=== PATIENT | male | born 1965 | race Two or more races ===

== ENCOUNTER 2019-11-23 06:57 | Day surgery (SDC) | payer BC ==
[2019-11-23] VITALS (9 sets, daily range): BP systolic 111–142; BP diastolic 68–87
[~2019-11-23] VITALS: Ht 175.3 cm; Wt 85.7 kg
[~2019-11-23 06:57] MED LIST: ANDROGEL75 G2 TD; AZILECT1 MG PO; CELEBREX200 MG ORAL; FAMOTIDINE20 MG ORAL; FLOMAX0.4 MG ORAL; SINEMET CR 25/101 EA ORAL; TADALAFIL5 M1 PO
[2019-11-23] MEDS ORDERED: Midazolam 2mg/2ml Inj ONE (07:31)
[2019-11-23] MEDS ORDERED: fentaNYL 100 mcg/2 mL IV ONE (07:31)
[2019-11-23] MEDS ORDERED: ALLEGRA-D 24 H1 EACH PO (07:43)
[2019-11-23] MEDS ORDERED: LR 1000ml 1,000 ML IVLG SCH (07:50)
--- NOTE | 2019-11-23 07:50 | Anethesia Preoperative Eval ---
Anesthesia Pre-op PMH/ROS General Date of Evaluation: Nov 23, 2019 Time of Evaluation: 07:47 Anesthesiologist: Amanda ASA Score: ASA 2 Mallampati Score Class I : Soft palate, uvula, fauces, pillars visible Class II: Soft palate, uvula, fauces visible Class III: Soft palate, base of uvula visible Class IV: Only hard plate visible Mallampati Classification: Class II Surgeon: Wanda Diagnosis: Colon polips Surgical Procedure: Colonoscopy Anesthesia History: none Family History: no anesthesia problems Allergies: Coded Allergies: No Known Allergies (Unverified , 11/22/19) Medications: see eMAR Patient NPO?: Yes Past Medical History Cardiovascular: Reports: HTN - borderline; Denies: CAD, [place], valve dz, arrhythmia, other Pulmonary: Denies: asthma, COPD, ISELA, other Gastrointestinal/Genitourinary: Reports: GERD, other - Prostate CA s/p radiation treatment; Denies: CRI, ESRD Neurologic/Psychiatric: Reports: depression/anxiety; Denies: dementia, CVA, TIA, other Endocrine: Denies: DM, hypothyroidism, steroids, other HEENT: Denies: cataract (L), cataract (R), glaucoma, ILIAMNA (L), ILIAMNA (R), other Hematology/Immune: Denies: anemia, DVT, bleeding disorder, other Musculoskeletal/Integumentary: Reports: OA; Denies: RA, DJD, DDD, edema, other Other: other - overweigt PMH Narrative: as above PSxH Narrative: Knee arthroscopy Anesthesia Pre-op Phys. Exam Physician Exam Constitutional: NAD Neurologic: CN 2-12 intact Cardiovascular: RRR, no M/R/G Respiratory: CTA Gastrointestinal: S/NT/ND Airway Exam Mallampati Score: Class II MO: full ROM: full Teeth: intact Dentures: no upper, no lower Anesthesia Pre-op A/P Studies Pre-op Studies: EKG - nsr Risk Assessment & Plan Assessment: ASA 2 Plan: MAC Status Change Before Surgery: Main Baldwin MD Nov 23, 2019 07:50
[2019-11-23] MEDS ORDERED: LR 1000ml ONE (08:00)
[2019-11-23] MEDS ORDERED: fentaNYL 100 mcg/2 mL IV PRN (08:00)
--- NOTE | 2019-11-23 08:18 | Short Stay Surgery H&P ---
History of Present Illness History of Present Illness Chief Complaint see H&P HPI Christopher Lopez is a 54 year old male who was admitted on for Hx Of Colon Polyps Patient History Allergies: Coded Allergies: No Known Allergies (Unverified , 11/22/19) Medication History Scheduled Celecoxib* (Celebrex*), 200 MG ORAL DAILY, (Reported) Famotidine* (Pepcid 20mg tablet*), 20 MG ORAL DAILY, (Reported) Fexofenadine/Pseudoephedrine (Florencia-D 24 Hour Tablet), 1 EACH PO DAILY, ( Reported) Levodopa/Carbidopa (Carbidopa-Levo ER 25-100 Tab), 1 TAB ORAL TID, (Reported) Rasagiline Mesylate (Azilect), 1 MG PO DAILY, (Reported) Tadalafil (Tadalafil), 5 MG PO DAILY, (Reported) Tamsulosin HCl (Flomax), 0.4 MG ORAL DAILY, (Reported) Testosterone (Androgel), 75 GM TD BID, (Reported) Physical Exam Vital Signs Last Vital Signs Date Time Temp Pulse Resp B/P (MAP) Pulse Ox O2 Delivery O2 Flow Rate FiO2 11/23/19 07:53 97.6 66 18 136/85 98 Room Air Plan Attestation Are the patient's medical conditions optimized for surgery? Gilberto Martins MD Nov 23, 2019 08:18
--- NOTE | 2019-11-23 08:19 | Pre-Procedure Note/Attestation ---
Pre-Procedure Note/Attestation Complete Prior to Procedure Planned Procedure: not applicable Procedure Narrative: colonoscopy Indications for Procedure Pre-Operative Diagnosis: h/o colon polyp Attestation I attest that I discussed the nature of the procedure; its benefits; risks and complications; and alternatives (and the risks and benefits of such alternatives ), prior to the procedure, with the patient (or the patient's legal member service representative). I attest that, if there was a reasonable possibility of needing a blood transfusion, the patient (or the patient's legal member service representative) was given the [facility] standardized written summary, pursuant to the Triston Maurizio Blood Safety Act ([place] Health and Safety Code # 1645, as amended). I attest that I re-evaluated the patient just prior to the surgery and that there has been no change in the patient's H&P, except as documented below: Gilberto Martins MD Nov 23, 2019 08:19
--- NOTE | 2019-11-23 08:58 | Immediate Post-Op Evaluation ---
Immediate Post-Op Evalulation Immediate Post-Op Evalulation Procedure: EGD Colonoscopy Date of Evaluation: Nov 23, 2019 Time of Evaluation: 08:57 IV Fluids: 600 Blood Products: none Estimated Blood Loss: none Urinary Output: none Blood Pressure Systolic: 116 Blood Pressure Diastolic: 76 Pulse Rate: 68 Respiratory Rate: 18 O2 Sat by Pulse Oximetry: 99 Temperature (Fahrenheit): 97.8 Pain Score (1-10): 1 Nausea: No Vomiting: No Complications none Patient Status: reacts, patent, none Hydration Status: adequate Main Patel MD Nov 23, 2019 08:58
--- NOTE | 2019-11-23 09:43 | 48 Hour Post Anesthesia Eval ---
Post Anesthesia Evaluation Procedure: EGD Colonoscopy Date of Evaluation: Nov 23, 2019 Time of Evaluation: 09:41 Blood Pressure Systolic: 126 0: 78 Pulse Rate: 68 Respiratory Rate: 18 Temperature (Fahrenheit): 97.4 O2 Sat by Pulse Oximetry: 98 Airway: patent Nausea: No Vomiting: No Pain Intensity: 1 Hydration Status: adequate Cardiopulmonary Status: stable Mental Status/LOC: patient returned to baseline Follow-up Care/Observations: n/a Post-Anesthesia Complications: none Follow-up care needed: ready to discharge Main Patel MD Nov 23, 2019 09:43
--- NOTE | 2019-11-23 12:45 | Operative Note - Dictated ---
DATE OF OPERATION: 11/23/2019 GASTROENTEROLOGY PROCEDURE REPORT PROCEDURE: Upper gastrointestinal endoscopy with biopsy as well as colonoscopy. SURGEON: Gilberto Martins MD. ANESTHESIA: Please see the separate anesthesiologist notes for details. PRE-ENDOSCOPIC DIAGNOSES: 1. Refractory symptoms of gastroesophageal reflux despite histamine 2 melissa treatments. 2. History of colonic polyps. POST-ENDOSCOPIC DIAGNOSES: 1. Linear erosion and shallow ulcerations in the lower esophagus consistent with gastroesophageal reflux disease. 2. 3 to 4 cm hiatal hernia. 3. Mild gastritis, status post biopsy. 4. Mild diverticulosis. 5. Normal terminal ileum to about 10 cm. DESCRIPTION OF PROCEDURE: The procedure, its risks, indications, alternatives, and possible complications were explained to the patient and informed consent was obtained. The patient was then sedated in the left lateral decubitus position. A diagnostic upper endoscope was introduced through oropharynx and advanced to the duodenum. The endoscope was then gradually withdrawn and mucosa examined carefully. Examination of the upper gastrointestinal mucosa revealed 3 to 4 cm hiatal hernia and the linear erosion and mild shallow ulceration extending about 3 cm above the gastroesophageal junction. Photo documentation was obtained. In the antrum of the stomach, there was some mild gastritis. Random biopsies of the antrum were sent to pathology for review. Thereafter, a rectal exam was done and the colonoscope was introduced into the rectum and advanced to 10 cm into the terminal ileum. The colonoscope was then gradually withdrawn and mucosa examined carefully. Examination of the colonic mucosa revealed mild sigmoid diverticulosis. Retroflexed view of the rectum was unremarkable. There were no polyps found on this examination. The colonoscope was removed and the patient was sent to Recovery in good condition. COMPLICATIONS: None. ASSESSMENT: This patient's endoscopic evaluation showed gastroesophageal reflux disease despite long-term treatment with histamine 2 blockers. The patient will therefore need to be given a proton pump inhibitor on a long-term basis instead. Reflux precautions will also be emphasized. There were no colonic polyps found on this examination and therefore the next examination will be recommended in 5 years. RECOMMENDATIONS: 1. Follow up biopsy results. 2. Reflux precautions. 3. Prilosec 20 mg p.o. daily. 4. High fiber diet. 5. Outpatient followup. Thank you for asking me to participate in the care of this patient. Gilberto Martins M.D. DR: MACRINA JOB#: [id number] CC: Mana Gu M.D.
== END 2019-11-23 09:15 | disposition home or self-care (01) ==
LOC: GAS 06:57
DX: K21.9 Gastro-esophageal reflux disease without esophagitis (principal); K57.90 Diverticulosis of intestine, part unspecified, without perforation or abscess without bleeding; K44.9 Diaphragmatic hernia without obstruction or gangrene; Z86.010 Personal history of colon polyps; K29.50 Unspecified chronic gastritis without bleeding; Z79.899 Other long term (current) drug therapy; Z85.46 Personal history of malignant neoplasm of prostate; I10 Essential (primary) hypertension; F32.9 Major depressive disorder, single episode, unspecified; F41.9 Anxiety disorder, unspecified; M19.90 Unspecified osteoarthritis, unspecified site; E66.3 Overweight; Z68.27 Body mass index [BMI] 27.0-27.9, adult
CPT/HCPCS: 43239; 45378; 94003; J2250; J3010; J7120; U0002; 94150